=== PATIENT | female | born 1965 | race Caucasian/White ===

== ENCOUNTER 2021-01-06 07:58 | Day surgery (SDC) | payer BC ==
[~2021-01-06] VITALS: Ht 162.6 cm; Wt 77.1 kg
== END 2021-01-06 09:46 | disposition home or self-care (01) ==
LOC: ORSCSDS 07:58
PROVIDERS: Internal Medicine Gastroenterology
PROC: 0DBM8ZX Excision of Descending Colon, Via Natural or Artificial Opening Endoscopic, Diagnostic (ICD-10-PCS; principal; 2021-01-06 09:00)
PROC: 0DBP8ZX Excision of Rectum, Via Natural or Artificial Opening Endoscopic, Diagnostic (ICD-10-PCS; principal; 2021-01-06 09:00)
PROC: 0DBK8ZX Excision of Ascending Colon, Via Natural or Artificial Opening Endoscopic, Diagnostic (ICD-10-PCS; principal; 2021-01-06 09:00)
PROC: 0DBL8ZX Excision of Transverse Colon, Via Natural or Artificial Opening Endoscopic, Diagnostic (ICD-10-PCS; principal; 2021-01-06 09:00)
DX: Z12.11 Encounter for screening for malignant neoplasm of colon (principal); D12.2 Benign neoplasm of ascending colon; D12.3 Benign neoplasm of transverse colon; K63.5 Polyp of colon; K62.1 Rectal polyp; K64.8 Other hemorrhoids
CPT/HCPCS: 88305; J2704; J7120

== ENCOUNTER 2023-07-03 19:22 | Emergency (ER) | payer OTHER ==
[~2023-07-03] VITALS: Ht 162.6 cm; Wt 61.2 kg
[2023-07-03 19:40] VITALS: BP 140/72
[2023-07-03] MEDS ORDERED: CEPH500 PO (21:03)
== END 2023-07-03 21:07 | disposition home or self-care (01) ==
LOC: ER 19:22
DX: L03.116 Cellulitis of left lower limb (principal)
CPT/HCPCS: 99282; A9270

== ENCOUNTER 2023-09-20 20:55 | Observation (INO) | payer OTHER ==
[~2023-09-20] VITALS: Ht 162.6 cm; Wt 62.6 kg
[~2023-09-20 20:55] MED LIST: CEPH500 PO
[2023-09-20 21:43] LABS: BASOPHILS ABSOLUTE AUTO 0.02 K/mm3 (0.00-0.23); BASOPHILS PERCENT AUTO 0 % (0-2); EOSINOPHILS ABSOLUTE AUTO 0.09 K/mm3 (0.00-0.68); EOSINOPHILS PERCENT AUTO 1 % (0-6); Hematocrit 40.9 % (33.0-51.0); Hemoglobin 13.6 g/dL (11.5-16.0); IMMATURE GRAN ABSOLUTE AUTO 0.02 K/mm3 (0.00-0.10); IMMATURE GRAN PERCENT AUTO 0 % (0-1); LYMPHOCYTES PERCENT AUTO 44 % (21-46); MONOCYTES ABSOLUTE AUTO 0.35 K/mm3 (0.16-1.47); MONOCYTES PERCENT AUTO 5 % (4-13); Mean Corpuscular HGB 31.1 pg (26.0-34.0); Mean Corpuscular HGB Conc 33.3 g/dL (31.5-36.5); Mean Corpuscular Volume 94 fL (80-100); Mean Platelet Volume 9.8 fL (9.1-12.4); NEUTROPHILS ABSOLUTE AUTO 3.24 K/mm3 (1.96-9.15); NEUTROPHILS PERCENT AUTO 49 % (41-73); Platelet Count 235 K/mm3 (150-400); RDW Standard Deviation 41.7 fL (35.1-46.3); Red Blood Cell Count 4.37 M/mm3 (3.80-5.20); White Blood Cell Count 6.62 K/mm3 (4.00-11.30)
[2023-09-20 22:02] LABS: Albumin/Globulin Ratio 1.2 (0.8-1.8); Bilirubin, Total 0.4 mg/dL (0.1-1.0); Creatinine, Blood 0.45 mg/dL (0.40-1.00); Globulin, Blood 3.4 g/dL (2.2-4.0); Potassium, Blood 3.3 mmol/L (3.5-5.5); Total Protein, Blood 7.4 g/dL (6.4-8.2)
[2023-09-21 04:56] VITALS: BP 135/95
[2023-09-21 08:35] VITALS: BP 114/76
--- NOTE | 2023-09-21 17:20 | NUR ---
DISCHARGE NOTE- PT AND SPOUSE PRESENT WHEN DR BAKER RETURNED TO TALK TO THE PT ABOUT HER TEST RESULTS. PT WAS DISCHARGED JUST AFTER THAT. IV AND TELE DC'D PRIOR TO DISCHARGE, PT ACKNOWLEDGED UNDERSTANDING OF VERBAL AND WRITTEN DISCHARGE INSTRUCTIONS. PT DECLINED WC AND STAFF ESCORT AND WALKED OUT WITH HER SPOUSE. NO S&S OF DISTRESS NOTED AT THE TIME OF DISCHARGE.
== END 2023-09-21 17:17 | disposition home or self-care (01) ==
LOC: ER 20:55 → MEDS 20:56
PROVIDERS: Student in an Organized Health Care Education/Training Program; ADMIT Internal Medicine
DX: I20.9 Angina pectoris, unspecified (principal); E87.6 Hypokalemia
CPT/HCPCS: 36415; 71046; 78452; 80053; 83690; 84484; 85025; 85379; 93005; 93010; 93017; 96372; 96374; 99285-25; A9270; A9500; G0378; J1644; J1885

== ENCOUNTER 2024-05-15 07:42 | Day surgery (SDC) | payer OTHER ==
[~2024-05-15] VITALS: Ht 162.6 cm; Wt 77.2 kg
[~2024-05-15 07:42] MED LIST changes: +Lactated Ringer's 1,000 ML IV ONE; +propofoL 50 ML IV ONE
[2024-05-15] MEDS ORDERED: Lactated Ringer's 1,000 ML IV ONE (08:14)
[2024-05-15 09:41] VITALS: BP 113/76
== END 2024-05-15 09:33 | disposition home or self-care (01) ==
LOC: ORSCSDS 07:42
PROVIDERS: Internal Medicine Gastroenterology
PROC: 0DJ08ZZ Inspection of Upper Intestinal Tract, Via Natural or Artificial Opening Endoscopic (ICD-10-PCS; principal; 2024-05-15 08:45)
DX: Z87.898 Personal history of other specified conditions (principal)
CPT/HCPCS: J2704; J7120